=== PATIENT | female | born 1985 | race Caucasian/White ===

== ENCOUNTER 2017-03-24 13:59 | Emergency (ER) | payer SELFPAY ==
[~2017-03-24] VITALS: Ht 160 cm; Wt 63.5 kg
[2017-03-24 14:12] VITALS: BP 101/49
[2017-03-24] MEDS ORDERED: PRENATAL (14:21)
--- NOTE | 2017-03-24 15:58 | ED GU-Female ---
General Chief Complaint: -Female Stated Complaint: BLEEDING/ Nursing Triage Note: PT. STATES SHE'S BEEN SPOTTING OFF AND ON. TODAY SHE HAS 3-4 PADS SOAKED. WHEN TO [facility] 3 DAYS AGO WITH SPOTTING. ER STATED BABY WAS FINE. PT. DID GET RHOGAM SHOT THERE. PT. REPORTS HAVING CRAMPING AND MORE BLEEDING TODAY. Nursing Sepsis Screen: No Definite Risk Source: patient Exam Limitations: no limitations History of Present Illness Time seen by provider: 15:58 Initial Comments 32 yo female patient presents to the ED with c/o vaginal bleeding intermittently x3-4 days. Patient states she was seen in [place] emergency department 3 days ago with an ultrasound showing "baby was fine" and fetus measured 6 wks. Patient reports pelvic exam was done with cultures taken. Patient states she did get a rhogam injection while in the emergency department. Patient reports increased bleeding today as well as lower abdominal cramping. States she has used 3-4 pads today. Last menstrual period was at the end of November. Timing/Duration: getting worse, other (3-4 days) Severity/Quality: cramping Location: suprapubic Radiation: none Activities at Onset: none Prior Genitourinary Problems: none Sexual [place] History: less than 2 months ago, single partner Allergies and Home Medications Allergies Coded Allergies: No Known Drug Allergies (Unverified , 03/24/17) Home Medications [] , (Reported) Constitutional: No chills, No dizziness, No fever, No malaise Respiratory: No cough, No short of breath Cardiovascular: No chest pain, No edema, No palpitations, No syncope Gastrointestinal: see HPI, abdominal pain (suprapubic abdominal cramping), No constipation, No diarrhea, No loss of appetite, No nausea, No vomiting Genitourinary: see HPI, denies burning, denies dysuria, denies frequency, denies flank pain, pain (suprapubic abdominal cramping) : Yes Musculoskeletal: no symptoms reported Skin: no symptoms reported Psychiatric/Neurological: No Symptoms Reported All Other Systemes Reviewed Negative Unless Noted: Yes (Negative excepted noted.) Past Qrxjqkn-Bntefg-Oxwhrb Hx Patient Social History Alcohol Use: Denies Use Recreational Drug Use: No Smoking Status: Current Everyday Smoker Type Used: Cigarettes Recent Foreign Travel: No Contact w/Someone Who Travel: No Recent Infectious Disease Expo: No Recent Hopitalizations: No Seasonal Allergies Seasonal Allergies: No Surgeries HX Surgeries: Yes Surgeries: Appendectomy Respiratory Hx Respiratory Disorders: No Cardiovascular Hx Cardiac Disorders: No Neurological Hx Neurological Disorders: No Reproductive System : Yes Hx : 3 Hx Para: 2 Hx Total # of Abortions (Spona: 0 Female Reproductive Disorders: Denies Genitourinary Hx Genitourinary Disorders: No Gastrointestinal Hx Gastrointestinal Disorders: Yes Gastrointestinal Disorders: Pancreatitis Musculoskeletal Hx Musculoskeletal Disorders: No Endocrine Hx Endocrine Disorders: No Cancer Hx Cancer: Yes Cancer: Cervical Reviewed Nursing Assessment Reviewed/Agree w Nursing PMH: Yes Family Medical History Significant Family History: No Pertinent Family Hx Physical Exam Vital Signs Vital Sign - Last 12Hours 03/24/17 14:12 Temp 98.6 Pulse 64 Resp 18 B/P (MAP) 101/49 Pulse Ox 100 O2 Delivery Room Air Capillary Refill : Less Than 3 Seconds General Appearance: WD/WN, no apparent distress HEENT: PERRL/EOMI, pharynx normal Neck: supple, normal inspection Cardiovascular: normal peripheral pulses, regular rate, rhythm, no edema, no murmur Respiratory: lungs clear, normal breath sounds, no respiratory distress Gastrointestinal: normal bowel sounds, non tender, soft, no organomegaly, No distended Pelvic: other (deferred by patient due to having a pelvic exam done in [place] ED 3 days ago.) Back: normal inspection, no CVA tenderness Extremities: no pedal edema, normal capillary refill Neurologic/Psychiatric: alert, normal mood/affect, oriented x 3 Skin: normal color, warm/dry Progress/Results/Core Measures Results/Orders Lab Results Laboratory Tests Test 03/24/17 15:01 03/24/17 16:08 Range/Units Human Chorionic Gonadotropin, Quant 1694 H <5 MIU/ML Urine Color YELLOW Urine Clarity SLIGHTLY CLOUDY Urine pH 6.5 5-9 Urine Specific [place] 1.015 L 1.016-1.022 Urine Protein 1+ H NEGATIVE Urine Glucose (UA) NEGATIVE NEGATIVE Urine Ketones NEGATIVE NEGATIVE Urine Nitrite NEGATIVE NEGATIVE Urine Bilirubin NEGATIVE NEGATIVE Urine Urobilinogen NORMAL NORMAL MG/DL Urine Leukocyte Esterase 2+ H NEGATIVE Urine RBC (Auto) 5+ H NEGATIVE Urine RBC 2-5 H /HPF Urine WBC 2-5 /HPF Urine Squamous Epithelial Cells 25-50 H /HPF Urine Crystals NONE /LPF Urine Bacteria FEW H /HPF Urine Casts NONE /LPF Urine Mucus NEGATIVE /LPF Urine Culture Indicated YES Micro Results Microbiology 03/24/17 Urine Culture - Preliminary, Resulted Strep, Beta Hemolytic Group B My Orders Orders - CHAVO BRUNER Hcg,Quantitative (03/24/17 14:36) Ua Culture If Indicated (03/24/17 14:36) Abo Rh Type (03/24/17 14:36) Us Ob<14 Wks Sngle W/Transvag (03/24/17 14:36) Urine Culture (03/24/17 16:08) Vital Signs/I&O Blood Pressure Mean: 66 Diagnostic Imaging Diagonstic Imaging: Ultrasound Plain Films/CT/US/NM/MRI: pelvis Comments FINDINGS: The uterus is 7.9 x 4 x 4.3 cm. The endometrial stripe is 0.9 cm in thickness. There is no gestational sac identified. The right ovary is 2.5 x 1 x 2.2 cm. The left ovary is 3 x 1.4 x 2.2 cm. Arterial and venous waveforms are demonstrated in both ovaries which demonstrate no suspicious mass. No fluid collection or hemorrhage in the pelvis is seen. IMPRESSION: Unremarkable exam. This could be related to very early normal , failed , or occult ectopic . Correlate with serial beta-hCG and followup ultrasound if needed. Dictated on workstation # [id number] Reviewed: Reviewed by Me (radiology report reviewed by me) Departure Communication Progress Notes patient states she contacted the hospital in [place] and was told her HCG levels were 2000 three days ago. patient also states they were able to see the fetus on U/S 3days ago. Ultrasound and beta hCG level results were discussed with the patient and spouse was in the room. HEENT for urinalysis results, this examiner was notified by nursing staff that patient had left AMA. Dr. Guthrie notified of patient leaving AMA. Impression Impression: Primary Impression: Spontaneous miscarriage Disposition: Condition: Against Medical Advice Departure-Patient Inst. Referrals: STANLEY HERNANDEZ BETHANY N MD FENECH,CARMELO JARRETT MD NO,LOCAL PHYSICIAN (PCP) Primary Care Physician SUNITA BOWER DO Add. Discharge Instructions: All discharge instructions reviewed with patient and/or family. Voiced understanding. CHAVO BRUNER Mar 24, 2017 15:58
--- NOTE | 2017-03-24 16:08 | Diagnostic Imaging Report ---
EXAMINATION: OB ultrasound. INDICATION: Bleeding. FINDINGS: The uterus is 7.9 x 4 x 4.3 cm. The endometrial stripe is 0.9 cm in thickness. There is no gestational sac identified. The right ovary is 2.5 x 1 x 2.2 cm. The left ovary is 3 x 1.4 x 2.2 cm. Arterial and venous waveforms are demonstrated in both ovaries which demonstrate no suspicious mass. No fluid collection or hemorrhage in the pelvis is seen. IMPRESSION: Unremarkable exam. This could be related to very early normal , failed , or occult ectopic . Correlate with serial beta-hCG and followup ultrasound if needed. Dictated by: Dictated on workstation # [id number]
[2017-03-24 16:42] LABS: BILIRUBIN,URINE NEGATIVE (NEGATIVE); KETONES,URINE NEGATIVE (NEGATIVE); LEUKOCYTE ESTERASE ,URINE 2+ (NEGATIVE); NITRITE,URINE NEGATIVE (NEGATIVE); PH,URINE 6.5 (5-9); PROTEIN,URINE 1+ (NEGATIVE); UROBILINOGEN,URINE NORMAL (NORMAL)
[2017-03-24 16:46] LABS: SQUAMOUS EPITHELIAL CELL,UR 25-50 /HPF
[2017-03-27] MEDS ORDERED: AMOX500C2 PO (12:49)
== END 2017-03-24 16:35 | disposition left against medical advice (07) ==
LOC: EEVIPCON 14:03 → ER 14:03
DX: O03.9 Complete or unspecified spontaneous abortion without complication (principal); O99.331 Smoking (tobacco) complicating pregnancy, first trimester; F17.210 Nicotine dependence, cigarettes, uncomplicated; Z3A.01 Less than 8 weeks gestation of pregnancy; Z90.49 Acquired absence of other specified parts of digestive tract; Z87.19 Personal history of other diseases of the digestive system; Z85.41 Personal history of malignant neoplasm of cervix uteri
CPT/HCPCS: 36415; 76801; 76817; 81000; 84702; 86900; 86901; 87088; 99283